=== PATIENT | male | born 1930 | race Caucasian/White ===

== ENCOUNTER 2019-05-01 15:13 | Inpatient (IN) | payer MEDICARE, OTHER ==
[~2019-05-01] VITALS: Ht 162.6 cm; Wt 71.9 kg
[~2019-05-01 15:13] MED LIST: ACET650T10 PO; ALBU2.5V7 NEB; AMLO5TAB4 PO; BISA10SU12 RC; CALCIUM PO; CYAN10009 PO; DONE5TAB7 PO; FERR325T6 PO; LEVO125T PO; LEVO500T2 PO; LISI-607 PO; MAG-55 PO; MAGN400O6 PO; MEMA1CAP PO; MULTIVITAMINS PO; NA P133E RC; OXCA150T5 PO; PANT40TA2 PO; QUET25TA PO; SIMV-46 PO; [UNRECOGNIZED DRUG - OTHER] PO; [UNRECOGNIZED DRUG - OTHER] PO
[2019-05-01 15:59] LABS: BASOPHILS % (AUTO) 0.3 % (0.0-2.0); EOSINOPHILS # (AUTO) 0.2 K/uL (0.0-0.7); EOSINOPHILS % (AUTO) 2.9 % (0.0-7.0); HEMATOCRIT 35.6 % (36.7-47.1); HEMOGLOBIN 11.6 g/dL (12.5-16.3); LYMPHOCYTES % (AUTO) 24.3 % (20.5-51.5); MEAN CORPUSCULAR HGB CONC 33 g/dL (32.5-36.3); MEAN CORPUSCULAR VOLUME 88.7 fL (73.0-96.2); MONOCYTES % (AUTO) 11.7 % (0.0-11.0); NEUTROPHILS # (AUTO) 5.1 K/uL (1.8-8.9); NEUTROPHILS % (AUTO) 60.8 % (38.5-71.5); PLATELET COUNT (AUTO) 356 K/uL (152-348); RED BLOOD CELL COUNT(AUTO) 4.01 MIL/uL (4.06-5.63); WHITE BLOOD COUNT (AUTO) 8.3 K/uL (3.6-10.2)
[2019-05-01 16:41] LABS: *BILIRUBIN,URIN NEGATIVE (NEGATIVE); *BLOOD, URINE 2+ (NEGATIVE); *COLOR,URINE YELLOW (YELLOW); *KETONES,URINE NEGATIVE (NEGATIVE); *UROBILINOGEN,URINE 0.2 E.U./dl (NORMAL); LEUKOCYTE ESTERASE ,URINE NEGATIVE (NEGATIVE); NITRITE, URINE NEGATIVE (NEGATIVE); PH,URINE 7.5 (5.0-8.0); UGLUCOSE NEGATIVE (NEGATIVE)
[2019-05-01 16:41] LABS: POTASSIUM 4.5 mmol/L (3.5-5.1)
[2019-05-01 16:47] LABS: *CLARITY,URINE HAZY (CLEAR)
[2019-05-01] MEDS ORDERED: IV NORMAL SALINE 250 ML IV ONE (16:53)
[2019-05-01] MEDS ORDERED: IOHEXOL 300MG/ML 100 ML INFUS..BTL ONE (16:53)
[2019-05-01] MEDS ORDERED: SWABABLE VALVE TRANSFER SET EA MC ONE (16:53)
[2019-05-01 16:55] LABS: BILIRUBIN,DIRECT 0.1 mg/dL (0.0-0.2); BILIRUBIN,TOTAL 0.2 mg/dL (0.2-1.0); TOTAL PROTEIN, SERUM 7.5 g/dL (6.4-8.2)
[2019-05-01] MEDS ORDERED: ASPIRIN 300 MG RECTAL SUPP RC ONE ×2 (17:00→17:20)
[2019-05-01] MEDS ORDERED: MEMA5TAB PO (17:02)
[2019-05-01] MEDS ORDERED: DOCU-141 PO (17:02)
[2019-05-01] MEDS ORDERED: OXCA150T5 PO (17:02)
[2019-05-01] MEDS ORDERED: LISI-607 PO (17:02)
[2019-05-01] MEDS ORDERED: FAMO-132 PO (17:02)
[2019-05-01] MEDS ORDERED: ASPI-618 PO (17:02)
[2019-05-01] MEDS ORDERED: NA P133E RC (17:02)
[2019-05-01] MEDS ORDERED: ACET325T53 PO (17:02)
[2019-05-01] MEDS ORDERED: MAG355OR18 PO (17:02)
[2019-05-01] MEDS ORDERED: AMLO5TAB4 PO (17:02)
[2019-05-01] MEDS ORDERED: BISA10SU12 RC (17:02)
[2019-05-01] MEDS ORDERED: LEVO200T PO (17:02)
[2019-05-01] MEDS ORDERED: PRAV40TA PO (17:02)
[2019-05-01] MEDS ORDERED: DONE5TAB7 PO (17:02)
[2019-05-01 17:10] LABS: BACTERIA,URINE FEW /HPF (NONE SEEN); SQUAMOUS EPITHELIAL CELL,UR FEW /HPF (NONE SEEN)
[2019-05-01 17:15] LABS: MAGNESIUM 2.1 mg/dL (1.8-2.4)
[2019-05-01 17:23] LABS: THYROID STIMULATING HORMONE 2.585 mIU/mL (0.358-3.740)
--- NOTE | 2019-05-01 17:32 | NUR ---
Patient is admitted to telemetry room 311 , under care of Dr. Toth. Belongings List completed. Nurse Albright accepted patient. MRSA swab sent to lab.
--- NOTE | 2019-05-01 18:30 | NUR ---
Pt.admited to TELE 211, placed on monitor-AV Pacing.Pictures of wounds taken. Family at bedside,updated with plan of care.Janey Yeboah was paged for admitting orders. Addendum: 05/01/19 at 1902 by HALI ALEMAN RN tele #[id number]
[2019-05-01 18:42] VITALS: BP 145/54
--- NOTE | 2019-05-01 19:30 | NUR ---
Received patient in bed, awake and alert with daughter at bedside. PMH obtained from daughter. Patient is A/Ox1. No distress noted. No signs of pain or SOB. Vitals WNL. Patient is on TELE monitor AV-pacing at 85 BPM. Heplock on right hand is intact and patent. Patient noted with swelling to the right cheek. Safety measures initiated. Bed is low and locked, call light within reach, bed alarm on. Will continue with admission process. Waiting for orders from Dr. Toth.
[2019-05-01 20:57] VITALS: BP 136/59
--- NOTE | 2019-05-01 21:33 | NUR ---
Waiting for admission orders, spoke to Dr. Toth, says he will put them in.
[2019-05-01] MEDS ORDERED: Z GUARD REMEDY PASTE 57 GM TUBE TOP PRN (22:15)
[2019-05-01] MEDS ORDERED: BISACODYL 10 MG SUPP.RECT RC PRN (22:15)
[2019-05-01] MEDS ORDERED: MAGNESIUM HYDROXIDE 30 ML LIQUID UDC PO PRN (22:15)
[2019-05-01] MEDS ORDERED: HYDROCODONE/APAP 5-325MG TABLET PO PRN (22:15)
[2019-05-01] MEDS ORDERED: ZOLPIDEM 5 MG TABLET PO PRN (22:15)
[2019-05-01] MEDS ORDERED: MAG HYDROX/AL HYDROX/SIMETH 30 ML LIQUID UDC PO PRN (22:15)
[2019-05-01] MEDS ORDERED: FLEET ENEMA 133 ML BOTTLE RC PRN (22:15)
[2019-05-01] MEDS ORDERED: ONDANSETRON 4 MG/2 ML VIAL IV PRN (22:15)
[2019-05-01] MEDS ORDERED: VANCOMYCIN IV 1 G in PREMIXED 0 EACH IV ONE (23:00)
[2019-05-01] MEDS ORDERED: VANCOMYCIN 1000 MG VIAL ONE (23:03)
[2019-05-02 00:47] VITALS: BP 108/54
[2019-05-02 04:45] VITALS: BP 104/48
--- NOTE | 2019-05-02 06:03 | NUR ---
Patient slept well throughout shift. Patient was started on Vanco 1g and tolerated well. No distress noted. turned and repositioned, heels offloading. Safety measures given. Will endorse to next shift.
[2019-05-02] MEDS: LEVOTHYROXINE SODIUM 200 MCG TABLET PO SCH (06:25)
[2019-05-02 06:30] LABS: BASOPHILS % (AUTO) 0.2 % (0.0-2.0); EOSINOPHILS # (AUTO) 0.1 K/uL (0.0-0.7); EOSINOPHILS % (AUTO) 0.7 % (0.0-7.0); HEMATOCRIT 33.9 % (36.7-47.1); MEAN CORPUSCULAR HEMOGLOBIN 27.9 uug (23.8-33.4); MEAN CORPUSCULAR HGB CONC 32 g/dL (32.5-36.3); MEAN CORPUSCULAR VOLUME 85.9 fL (73.0-96.2); MONOCYTES # (AUTO) 1.1 K/uL (2.0-10.0); NEUTROPHILS # (AUTO) 8.5 K/uL (1.8-8.9); NEUTROPHILS % (AUTO) 80.1 % (38.5-71.5); PLATELET COUNT (AUTO) 356 K/uL (152-348); RED BLOOD CELL COUNT(AUTO) 3.95 MIL/uL (4.06-5.63); WHITE BLOOD COUNT (AUTO) 10.6 K/uL (3.6-10.2)
[2019-05-02 06:48] LABS: CREATININE 0.9 mg/dL (0.6-1.3); MAGNESIUM 1.9 mg/dL (1.8-2.4); PHOSPHOROUS 3.6 mg/dL (2.5-4.9)
--- NOTE | 2019-05-02 08:00 | NUR ---
Received pt. resting in bed AO x1. 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 Pt. on tele monitor HR 78 AV packing. Pt. has IV in R hand 20 gauge intact patent saline lock. Pt. is on room air. pt. does not show any signs of pain/ discomfort. Pt. breathing regular. Lungs sound clear. Safety measures in place. Call light within reach. Will continue to monitor pt.
[2019-05-02] MEDS: FAMOTIDINE 20 MG TABLET PO SCH (08:56)
[2019-05-02] MEDS: MEMANTINE HCL 5 MG TABLET PO SCH (08:56)
[2019-05-02] MEDS: AMLODIPINE 5 MG TABLET PO SCH (08:56)
[2019-05-02] MEDS: DOCUSATE SODIUM 100 MG CAPSULE PO SCH ×2 (08:57→17:56)
[2019-05-02] MEDS: ASPIRIN EC 81 MG TABLET.DR PO SCH (08:57)
--- NOTE | 2019-05-02 09:04 | NUR ---
Clinical pharmacy note-Vancomycin dosing per pharmacy Subjective: To start Vancomycin dosing on this 88 yrs old patient for cellulitis(facial swelling) Objective: BUN 12 Scr 0.9 WBC 10.6 Temp 98.6 Ht 162.56cm Wt 71.894kg Assessment/Plan: Patient had Vancomycin 1gram last night at 2330. Will continue as Vancomycin 1gram IV every 19hrs(second dose tonight at 1800)and draw trough by 4th dose(not ordered yet) for expected trough around 15. Will monitor daily.
[2019-05-02] MEDS: OXCARBAZEPINE 150 MG TABLET PO SCH ×3 (11:14→17:56)
[2019-05-02 11:30] VITALS: BP 131/74
[2019-05-02 15:30] VITALS: BP 132/49
[2019-05-02] MEDS: VANCOMYCIN IV 1,000 MG in IV DEXTROSE 5% 250 ML IV SCH (17:57)
--- NOTE | 2019-05-02 18:19 | NUR ---
Pt. compliant with plan of care. Pt. denies pain, shows no signs of distress, respirations normal. Pt. running IV Vancomycin, pt. took all medication. Pt. had 1 BM throughout shift. Wound PA saw pt. and evaluated pt.'s facial abscess as well as sacral abrasion. instructed to put oil emulsion as well as mepilex and not to use hydrogel. She also stated to follow up outpatient with Dr. Jake Tate for facial abscess. Safety measures in place. Call light within reach. Will continue to monitor pt. and endorse to PM nurse.
[2019-05-02 19:49] VITALS: BP 142/63
--- NOTE | 2019-05-02 20:00 | NUR ---
Patient received into care, awake and laying in bed, watching tv. Patient is alert/oriented x1, peruvian speaking only, but does respond to name. Patient has no outward signs/symptoms of acute distress or discomfort at this time. IV cath site on right hand is patent/intact running IV ATB started on AM shift. All safety and fall precaution measures are in place. Call light and personal items are within reach at all times. Will continue to monitor.
[2019-05-02] MEDS: LISINOPRIL 5 MG TABLET PO SCH (21:23)
[2019-05-02] MEDS: DONEPEZIL 5 MG TABLET PO SCH (21:23)
[2019-05-02] MEDS: ATORVASTATIN 10 MG TABLET PO SCH (21:23)
[2019-05-03 00:05] VITALS: BP 115/61
[2019-05-03 04:53] VITALS: BP 106/49
[2019-05-03] MEDS: LEVOTHYROXINE SODIUM 200 MCG TABLET PO SCH (06:07)
--- NOTE | 2019-05-03 07:04 | NUR ---
Patient slept throughout night with no signs/symptoms of pain or acute distress noted or observed. All nursing needs were met promptly. Call light and personal items remain within reach at all times. Exit alarm activated.
--- NOTE | 2019-05-03 08:00 | NUR ---
Received pt. resting in bed AO x1. 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 Pt. on tele monitor AV pacing. Pt. has IV in R hand 20 gauge intact patent saline lock. Pt. is on room air. pt. does not show any signs of pain/ discomfort. Pt. breathing regular. Lungs sound clear. Safety measures in place. Call light within reach. Will continue to monitor pt.
[2019-05-03] MEDS: DOCUSATE SODIUM 100 MG CAPSULE PO SCH ×2 (08:29→18:02)
[2019-05-03] MEDS: ASPIRIN EC 81 MG TABLET.DR PO SCH (08:29)
[2019-05-03] MEDS: MEMANTINE HCL 5 MG TABLET PO SCH (08:29)
[2019-05-03] MEDS: OXCARBAZEPINE 150 MG TABLET PO SCH ×3 (08:29→18:02)
[2019-05-03] MEDS: FAMOTIDINE 20 MG TABLET PO SCH (08:29)
[2019-05-03] MEDS: AMLODIPINE 5 MG TABLET PO SCH (08:31)
--- NOTE | 2019-05-03 08:32 | NUR ---
WOUND CARE CONSULT WOUND CARE RECEIVED CONSULT FOR ABSCESS TO RIGHT SIDE OF FACE AND SACRAL ABRASION. WOUND CARE WILL DEFER CONSULT AND TREATMENT PLANS TO PLASTIC SURGICAL TEAM WHO ARE CURRENTLY FOLLOWING THIS PATIENT. PATIENT WITH GENNARO AT 13, ALL PRESSURE ULCER PREVENTION MEASURES ARE NOTED TO BE IN PLACE. WILL SEE PRN.
[2019-05-03 11:02] VITALS: BP 100/46
[2019-05-03] MEDS: VANCOMYCIN IV 1,000 MG in IV DEXTROSE 5% 250 ML IV SCH (12:13)
[2019-05-03 15:04] VITALS: BP 137/84
--- NOTE | 2019-05-03 15:57 | NUR ---
Clinical pharmacy note-Vancomycin dosing per pharmacy Subjective: To continue Vancomycin dosing on this 88 yrs old patient for cellulitis(facial swelling) Objective: BUN 12 (05/02) Scr 0.9 (05/02) WBC 10.6 (05/02) Temp 98.3 Ht 162.56cm Wt 71.894kg Assessment/Plan: Will continue as Vancomycin 1gram IV every 19hrs(third dose today at 1300)and draw trough by 4th dose(due tomorrow at 0730) for expected trough around 15. Will check level when available tomorrow am and adjust as needed. Will follow
--- NOTE | 2019-05-03 19:30 | NUR ---
PATIENT ALERT WITH CONFUSION, NO SOB NO CHEST PAIN NOTED. PATIENT HAS NO COMPLAIN OF PAIN AT THIS TIME. PATIENT ON TELE MONITOR PACING AT THIS TIME. PATIENT DENIES PAIN AT THIS TIME. CONT TO MONITOR.
[2019-05-03 20:17] VITALS: BP 124/56
[2019-05-03] MEDS: ACETAMINOPHEN 325 MG TABLET PO PRN (20:42)
[2019-05-03] MEDS: ATORVASTATIN 10 MG TABLET PO SCH (20:42)
[2019-05-03] MEDS: DONEPEZIL 5 MG TABLET PO SCH (20:42)
[2019-05-03] MEDS: LISINOPRIL 5 MG TABLET PO SCH (20:43)
--- NOTE | 2019-05-03 21:42 | NUR ---
PATIENT ALERT WITH CONFUSION, COMPLAIN OF PAIN ON R CHEEK ABCESS, AND HAS SLIGHT ELEVATED TEMP OF 100.6, GIVEN COOLING MEASURES, AND TYLENOL FOR PAIN AND DISCOMFORT. NURSING INTERVENTIONS EFFECTIVE AT THIS TIME. CONT TO MONITOR.
[2019-05-04 00:07] VITALS: BP 129/51
[2019-05-04 05:35] VITALS: BP 115/40
[2019-05-04] MEDS: LEVOTHYROXINE SODIUM 200 MCG TABLET PO SCH (06:00)
[2019-05-04 08:00] VITALS: BP 110/54
--- NOTE | 2019-05-04 08:00 | NUR ---
awake alert and oriented x1, speaks maldivian, respond very little when talked to but maintains eye contact, left facial abscess without drainage-no opening noted. fed by [employer] for breakfast, aspiration precaution observed, good appetite, no coughing episode noted. safety measures maintained,SR up
[2019-05-04] MEDS: VANCOMYCIN IV 1,000 MG in IV DEXTROSE 5% 250 ML IV SCH (08:46)
[2019-05-04] MEDS: DOCUSATE SODIUM 100 MG CAPSULE PO SCH ×2 (08:47→17:19)
[2019-05-04] MEDS: AMLODIPINE 5 MG TABLET PO SCH (08:47)
[2019-05-04] MEDS: OXCARBAZEPINE 150 MG TABLET PO SCH ×3 (08:47→17:19)
[2019-05-04] MEDS: MEMANTINE HCL 5 MG TABLET PO SCH (08:47)
[2019-05-04] MEDS: ASPIRIN EC 81 MG TABLET.DR PO SCH (08:47)
[2019-05-04] MEDS: FAMOTIDINE 20 MG TABLET PO SCH (08:48)
[2019-05-04 12:05] VITALS: BP 102/43
--- NOTE | 2019-05-04 12:57 | NUR ---
Clinical pharmacy note-Vancomycin dosing per pharmacy Subjective: To continue Vancomycin dosing on this 88 yrs old patient for cellulitis(facial swelling) Objective: BUN 12 (05/02) Scr 0.9 (05/02) WBC 10.6 (05/02) Temp 97.8 Ht 162.56cm Wt 71.894kg Trough today at 0730: 15.4 Assessment/Plan: Per today's trough, will continue as Vancomycin 1gram IV every 19hrs for now. Will continue to follow labs and adjust if condition were to change. Otherwise, if stable will continue current regimen.
[2019-05-04 16:00] VITALS: BP 130/55
--- NOTE | 2019-05-04 16:10 | NUR ---
TEMP 100.1 (O)- INFORMED Ihsan SALINAS NPID-told not tog hugh tylenol for now-orders given
--- NOTE | 2019-05-04 16:50 | NUR ---
blood drawn for labs and blood cultures, specimen sent for rapid influenza
[2019-05-04 17:04] LABS: BASOPHILS # (AUTO) 0.1 K/uL (0.0-8.0); BASOPHILS % (AUTO) 0.4 % (0.0-2.0); EOSINOPHILS # (AUTO) 0.1 K/uL (0.0-0.7); EOSINOPHILS % (AUTO) 0.4 % (0.0-7.0); LYMPHOCYTES # (AUTO) 1.3 K/uL (20.0-40.0); LYMPHOCYTES % (AUTO) 9.5 % (20.5-51.5); MEAN CORPUSCULAR HEMOGLOBIN 28.4 uug (23.8-33.4); MEAN CORPUSCULAR HGB CONC 32 g/dL (32.5-36.3); MEAN CORPUSCULAR VOLUME 87.5 fL (73.0-96.2); MONOCYTES # (AUTO) 1.3 K/uL (2.0-10.0); MONOCYTES % (AUTO) 9.9 % (0.0-11.0); NEUTROPHILS # (AUTO) 10.6 K/uL (1.8-8.9); NEUTROPHILS % (AUTO) 79.8 % (38.5-71.5); PLATELET COUNT (AUTO) 335 K/uL (152-348); RED BLOOD CELL COUNT(AUTO) 3.89 MIL/uL (4.06-5.63); WHITE BLOOD COUNT (AUTO) 13.2 K/uL (3.6-10.2)
[2019-05-04 17:27] LABS: CREATININE 1.2 mg/dL (0.6-1.3); POTASSIUM 4.5 mmol/L (3.5-5.1)
--- NOTE | 2019-05-04 18:20 | NUR ---
straight cath aseptically- urine specimen sent to lab, iv site on right hand red- restarted on G20 on right forearm. all needs attended attended and met, safety measures maintained
[2019-05-04 19:40] LABS: *BILIRUBIN,URIN NEGATIVE (NEGATIVE); *BLOOD, URINE 3+ (NEGATIVE); *CLARITY,URINE CLEAR (CLEAR); *COLOR,URINE YELLOW (YELLOW); *KETONES,URINE NEGATIVE (NEGATIVE); *UROBILINOGEN,URINE 0.2 E.U./dl (NORMAL); LEUKOCYTE ESTERASE ,URINE NEGATIVE (NEGATIVE); NITRITE, URINE NEGATIVE (NEGATIVE); UGLUCOSE NEGATIVE (NEGATIVE)
[2019-05-04 19:41] LABS: BACTERIA,URINE NONE SEEN /HPF (NONE SEEN); SQUAMOUS EPITHELIAL CELL,UR FEW /HPF (NONE SEEN); WBC,URINE 0-3 /HPF (0-3)
--- NOTE | 2019-05-04 19:45 | NUR ---
PATIENT ALERT WITH CONFUSION, NO SOB NO CHEST PAIN. TELE MONITOR AV PACING, CONT ON WARM COMPRESS DONE ON R CHEEK ABCESS/CELLULITIS. PATIENT NOTED WITH FACIAL GRIMACY WILL GIVE PAIN MEDS ORDERED. CONT TO MONITOR.
[2019-05-04 19:49] VITALS: BP 107/88
[2019-05-04] MEDS: ACETAMINOPHEN 325 MG TABLET PO PRN (19:58)
[2019-05-04] MEDS: DONEPEZIL 5 MG TABLET PO SCH (20:04)
[2019-05-04] MEDS: ATORVASTATIN 10 MG TABLET PO SCH (20:04)
[2019-05-04] MEDS: LISINOPRIL 5 MG TABLET PO SCH (20:05)
[2019-05-05 00:29] VITALS: BP 121/44
[2019-05-05] MEDS: VANCOMYCIN IV 1,000 MG in IV DEXTROSE 5% 250 ML IV SCH ×3 (02:13→21:52)
[2019-05-05 05:28] VITALS: BP 113/45
--- NOTE | 2019-05-05 06:12 | NUR ---
PATIENT SLEPT MOST OF THE NIGHT, NO SOB NO CHEST PAIN, PATIENT DENIES PAIN AT THIS TIME. PATIENT ON TELE MONITOR AV PACING. PATIENT HAS EPISODE OF LOW GRADE TEMP, COOLING MEASURE DONE WITH EFFECTIVE RESULTS. PATIENT R CHEEK ABCESS/CELLULITIS CONT ON WARM COMPRESSED, CONT TO MONITOR.
[2019-05-05] MEDS: LEVOTHYROXINE SODIUM 200 MCG TABLET PO SCH (06:35)
[2019-05-05 08:41] LABS: CARBON DIOXIDE 31 mmol/L (21-32); CHLORIDE 100 mmol/L (98-107); CREATININE 1.2 mg/dL (0.6-1.3); GLUCOSE 97 mg/dL (74-106); POTASSIUM 4.3 mmol/L (3.5-5.1); UREA NITROGEN, BLOOD 17 mg/dL (7-18)
[2019-05-05] MEDS: DOCUSATE SODIUM 100 MG CAPSULE PO SCH ×2 (08:44→17:11)
[2019-05-05] MEDS: MEMANTINE HCL 5 MG TABLET PO SCH (08:44)
[2019-05-05] MEDS: FAMOTIDINE 20 MG TABLET PO SCH (08:45)
[2019-05-05] MEDS: ASPIRIN EC 81 MG TABLET.DR PO SCH (08:45)
[2019-05-05] MEDS: AMLODIPINE 5 MG TABLET PO SCH (08:45)
[2019-05-05] MEDS: OXCARBAZEPINE 150 MG TABLET PO SCH ×3 (08:46→17:11)
--- NOTE | 2019-05-05 09:09 | NUR ---
Clinical pharmacy note-Vancomycin dosing per pharmacy Subjective: To continue Vancomycin dosing on this 88 yrs old patient for cellulitis(facial swelling) Objective: BUN 17 Scr 1.2 WBC 13.2 (05/04) Temp 98 Ht 162.56cm Wt 71.894kg Trough today at 0730: 15.4 Assessment/Plan: Will continue same dose of vanco 1gm IV q19h for today. Due to increased srcr, will re-check vanco trough level today before 10PM dose (ordered for today at 2130- RN has been informed to hold 2200 dose if vanco trough is above 20 mcg/ml). Pharmacy shall review the level in am & adjust the dose if needed. Will follow
[2019-05-05 11:54] VITALS: BP 111/54
[2019-05-05 16:10] VITALS: BP 112/47
--- NOTE | 2019-05-05 18:57 | NUR ---
Patient awake in bed with HOB elevated, No shortness of breath noted. no C/O pain at this time. Safety measures maintained, Siderails up with bed alarm on, call light within reach. will continue to monitor.
[2019-05-05 20:00] VITALS: BP 96/45
[2019-05-05] MEDS: LISINOPRIL 5 MG TABLET PO SCH (21:00)
[2019-05-05] MEDS: DONEPEZIL 5 MG TABLET PO SCH (21:10)
[2019-05-05] MEDS: ATORVASTATIN 10 MG TABLET PO SCH (21:10)
[2019-05-06 00:45] VITALS: BP 95/50
[2019-05-06 05:36] VITALS: BP 97/55
[2019-05-06] MEDS: LEVOTHYROXINE SODIUM 200 MCG TABLET PO SCH (06:30)
[2019-05-06 06:37] LABS: BASOPHILS % (AUTO) 0.3 % (0.0-2.0); EOSINOPHILS # (AUTO) 0.5 K/uL (0.0-0.7); EOSINOPHILS % (AUTO) 4.5 % (0.0-7.0); HEMATOCRIT 34.4 % (36.7-47.1); HEMOGLOBIN 10.8 g/dL (12.5-16.3); LYMPHOCYTES # (AUTO) 1.9 K/uL (20.0-40.0); LYMPHOCYTES % (AUTO) 16.6 % (20.5-51.5); MEAN CORPUSCULAR HEMOGLOBIN 27.8 uug (23.8-33.4); MEAN CORPUSCULAR HGB CONC 32 g/dL (32.5-36.3); MEAN CORPUSCULAR VOLUME 88.4 fL (73.0-96.2); MONOCYTES # (AUTO) 1.3 K/uL (2.0-10.0); MONOCYTES % (AUTO) 11.9 % (0.0-11.0); NEUTROPHILS # (AUTO) 7.5 K/uL (1.8-8.9); NEUTROPHILS % (AUTO) 66.7 % (38.5-71.5); PLATELET COUNT (AUTO) 344 K/uL (152-348); RED BLOOD CELL COUNT(AUTO) 3.89 MIL/uL (4.06-5.63); WHITE BLOOD COUNT (AUTO) 11.3 K/uL (3.6-10.2)
--- NOTE | 2019-05-06 06:44 | NUR ---
Patient slept well through out the night. No complaints of pain, no SOB noted. IV on RFA intact and patent. All needs attended. Will endorse accordingly
[2019-05-06 06:58] LABS: CREATININE 1.1 mg/dL (0.6-1.3); MAGNESIUM 2.1 mg/dL (1.8-2.4); PHOSPHOROUS 4.1 mg/dL (2.5-4.9); POTASSIUM 4.1 mmol/L (3.5-5.1)
--- NOTE | 2019-05-06 07:15 | NUR ---
RECEIVED PATIENT IN BED ASLEEP, NO S/S OF ACUTE DISTRESS OR SOB NOTED AT THIS TIME , NO S/S OF PAIN AT THIS TIME. PATIENT IV INTACT AND PATENT KEPT CLEAN DRY AT ALL TIMES WILL CONTINUE TO MONITOR.
--- NOTE | 2019-05-06 08:17 | NUR ---
Clinical pharmacy note-Vancomycin dosing per pharmacy Subjective: To continue Vancomycin dosing on this 88 yrs old patient for cellulitis(facial swelling) Objective: BUN 18 Scr 1.1 WBC 11.3 Temp 98.2 Ht 162.56cm Wt 71.894kg Trough on 05/04 at 0730: 15.4 Trough on 05/05 at 2130: 17.7 Assessment/Plan: Since vanco trough level is within therapeutic range, will continue same dose of vanco 1gm IV q19h for today. Will monitor renla function & adjust dose if needed.. Will follow
[2019-05-06] MEDS: MEMANTINE HCL 5 MG TABLET PO SCH (08:20)
[2019-05-06] MEDS: AMLODIPINE 5 MG TABLET PO SCH (08:20)
[2019-05-06] MEDS: ASPIRIN EC 81 MG TABLET.DR PO SCH (08:20)
[2019-05-06] MEDS: FAMOTIDINE 20 MG TABLET PO SCH (08:20)
[2019-05-06] MEDS: OXCARBAZEPINE 150 MG TABLET PO SCH ×2 (08:21→12:13)
[2019-05-06] MEDS: DOCUSATE SODIUM 100 MG CAPSULE PO SCH (08:27)
[2019-05-06 11:32] VITALS: BP 124/70
--- NOTE | 2019-05-06 15:15 | NUR ---
Dr. Love came did an incision and drainage on the patient right cheek, with TO consent received from daughter, Ragini Mohamud,
[2019-05-06 15:32] VITALS: BP 130/51
[2019-05-06] MEDS ORDERED: NEOMY/BACITRAC/POLYMI OINT 28.35 GM TUBE TOP SCH (17:00)
--- NOTE | 2019-05-06 17:00 | NUR ---
Discharge patient to [facility] via ambulance with 2 EMT, discharge instruction given. kept clean and dry at all times. ID bands removed , IV remains will be use at the facility, no belongings, came in with just a gown and diaper. question and concerns addressed, daughter been notified of transfer.
== END 2019-05-06 17:06 | DRG 606 ==
LOC: ER 15:14 → TELE3 17:52
PROVIDERS: ADMIT Internal Medicine; ATTEND Internal Medicine
PROC: 0J913ZX Drainage of Face Subcutaneous Tissue and Fascia, Percutaneous Approach, Diagnostic (ICD-10-PCS; principal; 2019-05-01)
DX: L72.3 Sebaceous cyst (principal); I21.4 Non-ST elevation (NSTEMI) myocardial infarction; L03.211 Cellulitis of face; I50.30 Unspecified diastolic (congestive) heart failure; E87.1 Hypo-osmolality and hyponatremia; Z66 Do not resuscitate; F03.90 Unspecified dementia, unspecified severity, without behavioral disturbance, psychotic disturbance, mood disturbance, and anxiety; E78.5 Hyperlipidemia, unspecified; E03.9 Hypothyroidism, unspecified; Z95.0 Presence of cardiac pacemaker; Z87.891 Personal history of nicotine dependence; M19.90 Unspecified osteoarthritis, unspecified site; J44.9 Chronic obstructive pulmonary disease, unspecified; Z79.890 Hormone replacement therapy; Z79.82 Long term (current) use of aspirin; Z87.01 Personal history of pneumonia (recurrent); Z88.0 Allergy status to penicillin; Z95.1 Presence of aortocoronary bypass graft; I25.10 Atherosclerotic heart disease of native coronary artery without angina pectoris; I11.0 Hypertensive heart disease with heart failure; I35.8 Other nonrheumatic aortic valve disorders; I70.0 Atherosclerosis of aorta; Z79.899 Other long term (current) drug therapy; I73.9 Peripheral vascular disease, unspecified; D64.9 Anemia, unspecified; R32 Unspecified urinary incontinence; L90.5 Scar conditions and fibrosis of skin
CPT/HCPCS: 36415; 70030-TC; 70487; 71045; 83605; 83735; 84100; 84443; 84480; 85025; 87040; 87070; 87086; 87400; 93005; 93307; A4663; C1758; G0378; J3370; J7050; J7060; Q9967